=== PATIENT | female | born 1985 | race Hispanic/Latino ===

== ENCOUNTER 2017-04-29 21:11 | Emergency (ER) | payer OTHER ==
[~2017-04-29] VITALS: Ht 172.7 cm; Wt 59.0 kg
[2017-04-29] MEDS ORDERED: HYDROCODONE/APAP 10MG-325MG TAB PO ONE (21:30)
--- NOTE | 2017-04-29 22:29 | Diagnostic Imaging Report ---
FOREARM LEFT 2 VIEW Comparison: None Clinical history: arm pain after dropping bowling ball on it Findings: No fracture or dislocation. Impression: No acute bony abnormality Signed by: Dr Rupa Andrea MD on 04/29/2017 10:26 PM
[2017-04-29 22:46] VITALS: BP 116/84
== END 2017-04-29 22:53 | disposition home or self-care (01) ==
LOC: ER 21:11
DX: S50.12XA Contusion of left forearm, initial encounter (principal); W20.8XXA Other cause of strike by thrown, projected or falling object, initial encounter; Y92.39 Other specified sports and athletic area as the place of occurrence of the external cause
CPT/HCPCS: 99283